=== PATIENT | female | born 1995 | race Caucasian/White ===

== ENCOUNTER → 2016-10-18 | Outpatient (CLI) | payer BC ==
[~2016-10-18] MED LIST: CLR10 PO; IUD'IUD
--- NOTE | 2016-10-18 16:35 | DIAGNOSTIC IMAGING REPORT ---
FUSION CT SINUSES WITHOUT INTRAVENOUS CONTRAST CLINICAL HISTORY: J32.9 Chronic [id number] Acquired deviated nasal xyknifV51.3 TECHNIQUE: Multiaxial CT images of the sinuses were performed and reformatted in the coronal plane without the use of intravenous contrast. Fusion CT sinus protocol was also obtained. COMPARISON STUDY: None. FINDINGS: The frontal sinuses, ethmoid air cells, sphenoid sinuses, and mastoid air cells are clear. Minimal mucosal thickening within the floors of the bilateral maxillary sinuses. Small focus of bubbly secretions within the roof of the right maxillary sinus. The lamina papyracea and orbital floors are intact. No evidence for carotid canal dehiscence. Mild rightward deviation of the nasal septum. Bilateral ostiomeatal units are essentially patent. The right ethmoid roof is positioned 2 mm inferior to the left ethmoid roof. Small bilateral Reny air cells are noted. The pterygopalatine fossa are well-maintained. The orbits and visualized brain parenchyma are unremarkable. IMPRESSION: 1. Minimal sinus disease within the bilateral maxillary antra. No fluid levels identified. 2. Mild right deviation of the nasal septum. Electronically signed by: Yao Gomez M.D. 10/18/2016 4:34 PM Dictated Date/Time: 10/18/2016 4:27 PM
== END | disposition home or self-care (01) ==
LOC: C.CTS 16:05
PROVIDERS: ATTEND Hospitalist
DX: J34.2 Deviated nasal septum (principal); J32.9 Chronic sinusitis, unspecified; J34.3 Hypertrophy of nasal turbinates; R51 Headache

== ENCOUNTER → 2016-12-13 | Day surgery (SDC) | payer BC ==
[2016-11-29 10:41] VITALS: Ht 154.9 cm; Wt 88.6 kg
[2016-12-06 16:38] LABS: BASO % 0.3 %; BASO ABS # 0.03 K/uL (0-0.2); COMPLETE YES; EOS % 1.4 %; HEMATOCRIT 40.1 % (37-47); IG% 0.3 %; LYMPH % 19.4 %; LYMPH ABS # 1.93 K/uL (1.2-3.4); MEAN CORPUSCULAR HEMOGLOBIN 31.1 pg (25-34); MEAN CORPUSCULAR HGB CONC 33.4 g/dl (32-36); MEAN PLATELET VOLUME 10.3 fL (7.4-10.4); NEUT % 67.6 %; PLATELET COUNT 313 K/uL (130-400); RED BLOOD COUNT 4.31 M/uL (4.2-5.4); WHITE BLOOD COUNT 9.94 K/uL (4.8-10.8)
[2016-12-06 16:47] LABS: PROTHROMBIN TIME (PATIENT) 10.8 SECONDS (9.0-12.0)
[2016-12-06 17:02] LABS: POTASSIUM 3.7 mmol/L (3.5-5.1)
[~2016-12-13] VITALS: Ht 154.9 cm; Wt 88.6 kg
[~2016-12-13] MED LIST changes: +ALBUT/IPRATROP 3MG/0.5MG NEB 3 ML VIAL INH ONE; +ALBUT/IPRATROP 3MG/0.5MG NEB 3 ML VIAL ONE; +ATROPINE SULFATE 0.1 MG/ML 5ML SYR IV PRN; +CEFAZOLIN 2000 MG/60 ML D5W IV SCH; +DEXAMETHASONE SOD INJ 4 MG/ML VIAL ONE; +EpHEDrine SULFATE INJ 50 MG/ML AMP IV PRN; +EpINEphrine INJ 1MG/ML AMP 1 MG/ML AMP ONE; +FENTANYL CITRATE INJ 50 MCG/1 ML 2 ML VIAL ONE; +FLUMAZENIL 0.1 MG/1 ML 10 ML VIAL IV PRN; +HYDROCODONE/ACETAMOPHEN 5/325MG TAB PO PRN; +HYDROmorphone INJ 2 MG/ML SYR/VIAL IV PRN; +LABETALOL HCL IV 5 MG/ML 20ML IV PRN; +LACTATED RINGER'S 1000ML 1,000 ML IV SCH; +LIDOCAINE 4% MPF SOAK 5 ML = 1 DOSE TOP ONE; +LIDOCAINE HCL 2% 2 ML VIAL (20MG/ML) ONE; +LIDOCAINE/EPINEPHRINE 1% INJ 50 ML VIAL ONE; +MEPERIDINE HCL 25 MG/ML CARP IV PRN; +MIDAZOLAM HCL 1 MG/ML 2ML VIAL ONE; +NALOXONE HCL 0.4 MG/1 ML VIAL/CARP IV PRN; +ONDANSETRON INJ 2 MG/ML 2 ML VIAL IV PRN; +ONDANSETRON INJ 2 MG/ML 2 ML VIAL ONE; +OXYMETAZOLINE HCL 0.05% NA SPR 15 ML BTL NAE SCH; +OXYMETAZOLINE HCL 0.05% NA SPR 15 ML BTL PRN; +PHENYLEPHRINE 100MCG/ML 5ML SYR IV PRN; +PROPOFOL IV EMULSION 10 MG/ML 20 ML VIAL IV ONE; +SCOPOLAMINE 1.5 MG TDSY TD ONE; +SUCCINYLCHOLINE CHLORIDE 20 MG/ML 10 ML VIAL IV ONE
--- NOTE | 2016-12-13 10:47 | History & Physical Bridge - SC ---
H&P Re-Evaluation Bridge Note: I have examined the patient, reviewed the History & Physical and in the interval since the performance of the History & Physical I have noted the following changes of clinical significance: No changes noted
--- NOTE | 2016-12-13 11:02 | History and Physical: Surg Cnt ---
History & Physical Date Dec 13, 2016. Chief Complaint CHRONIC SINUSITIS, SEPTAL DEVIATION, AND BILATERAL INFERIOR TURBINATE HYPERTROPHY History of Present Illness The patient is a 21 year old female with complaints of RECURRENT ACUTE AND CHRONIC SINUSITIS Past Medical/Surgical History PMH: ALLERGIC RHINITIS, CHRONIC SINUSITIS PSH: S/P IUD Additional History Hepatic Disease: No Endocrine Disorder: No Kidney Disease: No Hypertension: No Heart Disease: No Bleeding Tendencies: No Infectious Diseases: No Allergies Coded Allergies: NO KNOWN DRUG ALLERGIES (Verified Allergy, Unknown, ., 12/13/16) Home Medications Scheduled Loratadine (Claritin), 10 MG PO BID Miscellaneous Medications Iud's (Paragard Intrauterine Working Second Hand) Physical Examination Skin: warm/dry, no rash Eyes: normal inspection, EOMI, sclerae normal ENT: + pertinent finding (R DNS, L>R ITH) Head: normocephalic, atraumatic Neck: supple, no adenopathy, trachea midline Respiratory/Chest: lungs clear, normal breath sounds, no respiratory distress Cardiovascular: regular rate, rhythm, no edema, no murmur Neurologic/Psych: no motor/sensory deficits, alert, normal reflexes, oriented x 3 Diagnosis CHRONIC SINUSITIS, SEPTAL DEVIATION, AND BILATERAL INFERIOR TURBINATE HYPERTROPHY Plan of Treatment B FESS/SEPTOPLASTY/INFERIOR TURBINATE REDUCTION
--- NOTE | 2016-12-13 11:48 | [facility] Operative Report ---
Operative Report Operative Date Dec 13, 2016. Pre-Operative Diagnosis Chronic sinusitis, aquired deviated nasal septum, hypertrophy of nasal turbinates Post-Operative Diagnosis Same as preop Procedure(s) Performed Septoplasty, Bilateral Inferior Turbinate Outfracture And Turbinoplasty, Bilateral Maxillary Antrostomy, Bilateral Ethmoidectomy, Left Frank Bullosa Resection Surgeon Dr. Frazier Public Relations Senior Associate Surgeon(s) None Estimated Blood Loss 20 mL Findings 1. L FRANK BULLOSA 2. R DNS WITH POSTERIOR INFERIOR SEPTAL SPUR 3. L>R ITH 4. MUCOSAL THICKENING B MAXILLARY AND ETHMOID SINUSES Specimens None I attest to the content of the Intraoperative Record and any orders documented therein. Any exceptions are noted below.
--- NOTE | 2016-12-13 11:50 | Discharge Instructions ---
Discharge Instructions Date of Service Dec 13, 2016. Admission Reason for Admission: Chronic Sinusitis, Deviated Nasal Septum, Hypertro Discharge Discharge Diagnosis / Problem: SAME Discharge Goals Goal(s): Therapeutic intervention Activity Recommendations Activity Limitations: as noted below 1. LIGHT ACTIVITY FOR 2WEEKS 2. NO DRIVING WHILE ON [place] 3. NO NOSE BLOWING FOR 2WEEKS . Current Hospital Diet Patient's current hospital diet: Discharge Diet Recommended Diet: Regular Diet Procedures Procedures Performed: Septoplasty, Bilateral Inferior Turbinate Outfracture And Turbinoplasty, Bilateral Maxillary Antrostomy, Bilateral Ethmoidectomy, Left Sierra Bullosa Resection Pending Studies Studies pending at discharge: no Medical Emergencies . Who to Call and When: Medical Emergencies: If at any time you feel your situation is an emergency, please call 911 immediately. . Non-Emergent Contact Non-Emergency issues call your: Surgeon . . "Provider Documentation" section prepared by Steve Frazier. VTE Core Measure Inpt VTE Proph given/why not?: SCD's
[2016-12-13] MEDS: FENTANYL CITRATE INJ 50 MCG/1 ML 2 ML VIAL IV PRN ×2 (12:06→12:13)
--- NOTE | 2016-12-13 12:44 | Anesthesia Progress Nt - [facility] ---
Anesthesia Post Op Note Date & Time Dec 13, 2016 at 12:45 Vital Signs Pain Intensity: 3 Vital Signs Past 12 Hours Date Time Temp Pulse Resp B/P Pulse Ox O2 Delivery O2 Flow Rate FiO2 12/13/16 12:36 92 25 12/13/16 12:36 92 25 99 12/13/16 12:35 134/83 12/13/16 12:34 36.7 93 16 134/83 98 Room Air 12/13/16 12:31 100 18 12/13/16 12:31 100 18 98 12/13/16 12:30 135/80 12/13/16 12:27 96 20 100 12/13/16 12:27 98 20 12/13/16 12:25 127/85 12/13/16 12:22 88 13 100 12/13/16 12:22 86 13 12/13/16 12:20 120/81 12/13/16 12:17 88 13 94 12/13/16 12:17 86 13 12/13/16 12:15 131/69 12/13/16 12:12 97 16 99 12/13/16 12:12 96 16 12/13/16 12:10 131/85 12/13/16 12:07 93 13 98 12/13/16 12:07 92 13 12/13/16 12:05 140/83 12/13/16 12:02 97 15 12/13/16 12:02 95 15 100 12/13/16 12:00 131/79 12/13/16 11:57 37.2 108 16 137/80 100 Humidified Oxygen Diffusion Mask 12/13/16 11:57 108 18 100 12/13/16 11:57 108 18 12/13/16 10:42 36.2 77 16 127/77 96 Room Air Notes Mental Status: alert / awake / arousable, participated in evaluation Pt Amnestic to Procedure: Yes Nausea / Vomiting: adequately controlled Pain: adequately controlled Airway Patency, RR, SpO2: stable & adequate BP & HR: stable & adequate Hydration State: stable & adequate Anesthetic Complications: no major complications apparent
[2016-12-13 12:47] VITALS: TEMP 36.6
--- NOTE | 2016-12-13 13:26 | OPERATIVE REPORT ---
DATE OF OPERATION: 12/13/2016 PREOPERATIVE DIAGNOSIS: 1. Chronic rhinosinusitis. 2. Left tabitha bullosa. 3. Right septal deviation. 4. Left greater than right inferior turbinate hypertrophy. POSTOPERATIVE DIAGNOSIS: 1. Chronic rhinosinusitis. 2. Left tabitha bullosa. 3. Right septal deviation. 4. Left greater than right inferior turbinate hypertrophy. PROCEDURES: 1. Left endoscopic tabitha bullosa resection. 2. Bilateral maxillary antrostomies. 3. Bilateral anterior ethmoidectomies. 4. Endoscopic septoplasty. 5. Bilateral inferior turbinate outfracture and turbinoplasty. SURGEON: Dr. Frazier. ANESTHESIA: General endotracheal. ESTIMATED BLOOD LOSS: 25 mL. FINDINGS: 1. Large left tabitha bullosa. 2. Mild mucosal thickening involving the bilateral maxillary and ethmoid sinuses. 3. Right posterior septal deviation with septal spur. 4. Left greater than right inferior turbinate hypertrophy. SPECIMENS: None. COMPLICATIONS: None. INDICATIONS FOR THIS PROCEDURE: The patient is a 21-year-old female with a history of recurrent acute and chronic rhinosinusitis which has been unresponsive to maximal medical therapy including systemic antibiotics and steroids. A post-treatment CT scan of the sinuses revealed mild mucosal thickening involving the bilateral maxillary and ethmoid sinuses as well as narrowed ostiomeatal complexes. In addition, there was a large left tabitha bullosa and right posterior septal deviation. The patient presents for the above-mentioned procedures on an outpatient elective basis. DETAILS OF PROCEDURE: After informed consent had been obtained from the patient, the patient was wheeled to the operating room and placed on the operating table in supine position. Monitors were placed. After induction of general endotracheal anesthesia, the patient was prepped in the usual fashion for endoscopic sinus surgery. Lidocaine and epinephrine pledgets were placed into bilateral nasal cavities and pressure applied. The left side pledgets were first removed. The left middle turbinate and lateral nasal wall were injected with 1% lidocaine with 1:100,000 epinephrine. Lidocaine and epinephrine pledget was then placed into the left middle meatus. The right side was then addressed in a similar fashion. The left-sided pledgets were removed. A sickle knife was used to incise the left middle turbinate longitudinally and the lateral half of the middle turbinate was removed using straight Delon-Cut forceps and powered instrumentation. An uncinatectomy was then performed using a Rosalie elevator, straight Delon-Cut forceps and powered instrumentation. The natural ostia of the left maxillary sinus was identified and this was enlarged anteriorly, inferiorly, and posteriorly using backbiting forceps and powered instrumentation. The anterior ethmoidectomy was then performed using powered instrumentation. The right side was then addressed in a similar fashion; however on this side there was no tabitha bullosa. Of note, there was mucosal thickening involving the bilateral maxillary and ethmoid sinuses with polypoid mucosal thickening, most evident in the right anterior ethmoid sinus. The nasal septum was then inspected. The decision was made to perform an endoscopic septoplasty rather than a traditional septoplasty. The nasal septum was injected on the right hand side using 1% lidocaine with 1:100,000 epinephrine. A caudal elevator was used to make the incision right anterior to the bony septal spur and a caudal elevator was used to elevate the mucoperiosteal flap. An osteotome, mallet, and Deb forceps was then used to remove the bony septal spur which was impinging on the nasal airway posteriorly. The mucoperiosteal flap was then redraped in its natural position and was not sutured. The inferior turbinates were then infractured and then subsequently fractured with a Howard elevator. 3 mL of 1% lidocaine with 1:100,000 epinephrine was used to inject the inferior turbinates bilaterally. A 2.0 mm turbinate blade using powered instrumentation was then used to perform bilateral inferior turbinoplasties in a submucosal fashion. The sinonasal cavities were then suctioned. Merogel was then placed in the bilateral ethmoid cavities. An orogastric tube was placed and the stomach was suctioned free of air and stomach contents. This marked the end of the case. The patient tolerated the procedure well and there were no apparent complications. The patient was extubated and transferred to recovery room in stable condition. I attest to the content of the Intraoperative Record and any orders documented therein. Any exceptio ns are noted below.
[2016-12-13 13:30] VITALS: BP 137/88; PULSE 79; O2SAT 99
== END | disposition home or self-care (01) ==
LOC: X.SURG 10:24
DX: J32.9 Chronic sinusitis, unspecified (principal); J34.89 Other specified disorders of nose and nasal sinuses; J34.2 Deviated nasal septum; J34.3 Hypertrophy of nasal turbinates